=== PATIENT | female | born 1965 | race Caucasian/White ===

== ENCOUNTER → 2018-09-04 08:36 | Outpatient (CLI) | payer OTHER, SELFPAY ==
--- NOTE | 2018-09-04 | DI.MG.S_ITS ---
BILATERAL DIGITAL SCREENING MAMMOGRAM 3D/2D WITH CAD: 09/04/2018 CLINICAL: Routine screening. Family history of breast cancer. Comparison is made to exams dated: 06/28/2017 mammogram, 06/16/2016 mammogram, and 06/04/2014 mammogram - [facility]. The tissue of both breasts is heterogeneously dense. This may lower the sensitivity of mammography. Current study was also evaluated with a Computer Aided Detection (CAD) system. No significant masses, calcifications, or other findings are seen in either breast. There has been no significant interval change. IMPRESSION: NEGATIVE There is no mammographic evidence of malignancy. A 1 year screening mammogram is recommended. This exam was interpreted at Station ID: [id number]. NOTE: For mammograms, a report in lay terms will be sent to the patient. Approximately 15% of breast malignancies will not be visualized mammographically. In the management of a palpable breast mass, a negative mammogram must not discourage biopsy of a clinically suspicious lesion. Electronically Signed By: Rosie ugalde/sharla:09/04/2018 09:44:50 letter sent: Normal Exam ACR BI-RADS Category 1: Negative 3341F
== END ==
PROVIDERS: PCP Family Medicine; Visit Provider Family Medicine
DX: Z12.31 Encounter for screening mammogram for malignant neoplasm of breast (principal); Z80.3 Family history of malignant neoplasm of breast
CPT/HCPCS: 77063; 77067

== ENCOUNTER → 2018-09-04 08:42 | Outpatient (CLI) | payer OTHER, SELFPAY ==
--- NOTE | 2018-09-04 | DI.US.S_ITS ---
PROCEDURE: US PELVIC COMPLETE INDICATIONS: RIGHT PELVIC PAIN TECHNIQUE: Real-time scanning was performed of the pelvic organs, with image documentation. Additional endovaginal scanning was necessary due to incomplete visualization of the adnexal and endometrial structures by transabdominal scanning. COMPARISON: [facility], PELVIC COMPLETE, 08/08/2016, 10:50. [facility], PELVIC COMPLETE, 05/08/2017, 12:20. FINDINGS: Transabdominal scanning: Limited scanning through the kidneys shows no hydronephrosis. No pathologic free abdominal or pelvic fluid. Endovaginal scanning: Uterus: Uterus is normal in size at 5.5 x 5.7 x 4.7 cm. The endometrium measures 4-5 mm in combined thickness. There is a 2.4 cm fibroid seen along the posterior left uterus. Ovaries: Neither ovary can be seen. IMPRESSION: No imaging explanation is found for this patient's presenting history of pelvic pain. 2.4 cm fibroid noted, which is similar to prior study Limited study, without visualization of either ovary. Dictated by: Johnnie Smiley M.D. on 09/04/2018 at 9:34 Approved by: Johnnie Smiley M.D. on 09/04/2018 at 9:36
== END ==
PROVIDERS: PCP Family Medicine; Visit Provider Family Medicine
DX: D25.9 Leiomyoma of uterus, unspecified (principal); R10.2 Pelvic and perineal pain
CPT/HCPCS: 76830; 76856

== ENCOUNTER → 2019-09-24 08:10 | Outpatient (CLI) | payer OTHER, SELFPAY ==
--- NOTE | 2019-09-24 | DI.MG.S_ITS ---
BILATERAL DIGITAL SCREENING MAMMOGRAM 3D/2D WITH CAD: 09/24/2019 CLINICAL: Routine screening. Family history of breast cancer. Comparison is made to exams dated: 09/04/2018 mammogram, 06/28/2017 mammogram, and 06/16/2016 mammogram - [facility]. The tissue of both breasts is heterogeneously dense. This may lower the sensitivity of mammography. Current study was also evaluated with a Computer Aided Detection (CAD) system. No significant masses, calcifications, or other findings are seen in either breast. There has been no significant interval change. IMPRESSION: NEGATIVE There is no mammographic evidence of malignancy. A 1 year screening mammogram is recommended. This exam was interpreted at Station ID: [id number]. NOTE: For mammograms, a report in lay terms will be sent to the patient. Approximately 15% of breast malignancies will not be visualized mammographically. In the management of a palpable breast mass, a negative mammogram must not discourage biopsy of a clinically suspicious lesion. Electronically Signed By: Bridget bowden/sharla:09/24/2019 09:11:44 letter sent: Normal Exam ACR BI-RADS Category 1: Negative 3341F
== END ==
PROVIDERS: PCP Family Medicine; Visit Provider Family Medicine
DX: Z12.31 Encounter for screening mammogram for malignant neoplasm of breast (principal); Z80.3 Family history of malignant neoplasm of breast
CPT/HCPCS: 77063; 77067

== ENCOUNTER → 2020-04-15 10:11 | Outpatient (CLI) | payer OTHER, SELFPAY ==
--- NOTE | 2020-04-15 | DI.RAD.S_ITS ---
PROCEDURE: XR ANKLE LT MIN 3V INDICATIONS: FRACTURE TECHNIQUE: 3 views of the ankle were acquired. COMPARISON: Outside Film, CR, XR ANKLE 1 OR 2 VIEWS LEFT, 03/19/2020, 17:15. FINDINGS: Bones: Cortical avulsion fracture involving the tip of the lateral malleolus. Anatomic alignment at the tibiotalar joint. Overlying soft tissue swelling has improved since 03/19/20. IMPRESSION: Unchanged alignment of a cortical avulsion fracture of the tip of the lateral malleolus. Interval improved soft tissue swelling. Approved by: Jason Wolf M.D. on 04/15/2020 at 11:20
== END ==
PROVIDERS: PCP Family Medicine; Referring Provider Podiatrist; Visit Provider Podiatrist
DX: M84.372D Stress fracture, left ankle, subsequent encounter for fracture with routine healing (principal)
CPT/HCPCS: 73610

== ENCOUNTER → 2020-11-22 16:15 | Outpatient (CLI) | payer OTHER, SELFPAY ==
--- NOTE | 2020-11-22 16:17 | DI.MG.S_ITS ---
BILATERAL DIGITAL SCREENING MAMMOGRAM 3D/2D WITH CAD: 11/22/2020 CLINICAL: Routine screening. Family history of breast cancer. Comparison is made to exams dated: 09/24/2019 mammogram, 09/04/2018 mammogram, and 06/28/2017 mammogram - [facility]. There are scattered fibroglandular elements in both breasts. Current study was also evaluated with a Computer Aided Detection (CAD) system. No significant masses, calcifications, or other findings are seen in either breast. There has been no significant interval change. IMPRESSION: NEGATIVE There is no mammographic evidence of malignancy. A 1 year screening mammogram is recommended. This exam was interpreted at Station ID: [id number]. NOTE: For mammograms, a report in lay terms will be sent to the patient. Approximately 15% of breast malignancies will not be visualized mammographically. In the management of a palpable breast mass, a negative mammogram must not discourage biopsy of a clinically suspicious lesion. Electronically Signed By: Jeff burkett/sharla:11/22/2020 16:43:55 letter sent: Normal Exam ACR BI-RADS Category 1: Negative 3341F
== END ==
PROVIDERS: PCP Family Medicine; Referring Provider Family Medicine; Visit Provider Family Medicine
DX: Z12.31 Encounter for screening mammogram for malignant neoplasm of breast (principal); Z80.3 Family history of malignant neoplasm of breast
CPT/HCPCS: 77063; 77067

== ENCOUNTER → 2021-08-03 10:36 | Outpatient (CLI) | payer OTHER, SELFPAY ==
--- NOTE | 2021-08-03 | DI.US.S_ITS ---
PROCEDURE: US PELVIC COMPLETE INDICATIONS: RIGHT PELVIC PAIN TECHNIQUE: Real-time scanning was performed of the pelvic organs, with image documentation. Additional endovaginal scanning was necessary due to incomplete visualization of the adnexal and endometrial structures by transabdominal scanning. COMPARISON: [facility], , US PELVIC COMPLETE, 09/04/2018, 9:29. FINDINGS: Uterus: Uterus is retroverted and normal in size at 5.6 x 3.9 x 3.8 cm. The myometrium is homogeneous. The endometrium measures 2.0 mm combined thickness. 1.9 cm posterior subserosal fibroid which appears similar prior examination. Ovaries: Right ovary measures 2.8 x 0.8 x 0.9 cm and the left ovary is not visualized. No adnexal masses seen. There is prominent adnexal vascularity bilaterally. Other: No pathologic free abdominal or pelvic fluid. IMPRESSION: 1. The right ovary appears normal and the left ovary is not visualized. 2. No change in posterior subserosal fibroid measuring up to 19 mm. 3. Prominent adnexal vascularity which can be associated with pelvic congestion syndrome. We strive to produce accurate, complete, and clear reports of imaging services. To assist us in improving patient care, this report was composed using standard report templates and voice recognition software. Therefore, it may contain abnormal punctuation, insertions and/or omissions. Occasional wrong-word or sound-alike substitutions may occur. Though we review the report and make efforts to correct it, we do recommend that the report be read carefully in proper context to recognize any text inaccuracies. Dictated by: Floyd FENG Interpreted: Garland Perez MD on 08/03/2021 at 11:44 Transcribed by: DENIS on 08/03/2021 at 11:47 Approved by: Garland Perez M.D. on 08/03/2021 at 13:49
== END ==
PROVIDERS: PCP Family Medicine; Referring Provider Family Medicine; Visit Provider Family Medicine
DX: D25.2 Subserosal leiomyoma of uterus (principal); R10.2 Pelvic and perineal pain
CPT/HCPCS: 76830; 76856

== ENCOUNTER → 2022-05-10 08:11 | Outpatient (CLI) | payer OTHER, SELFPAY ==
--- NOTE | 2022-05-10 08:13 | DI.MG.S_ITS ---
BILATERAL DIGITAL SCREENING MAMMOGRAM 3D/2D WITH CAD: 05/10/2022 CLINICAL: Routine screening. Family history of breast cancer. Comparison is made to exams dated: 11/22/2020 mammogram, 09/24/2019 mammogram, and 09/04/2018 mammogram - [facility]. There are scattered areas of fibroglandular density in both breasts (category b / 25%-50% glandular tissue). Current study was also evaluated with a Computer Aided Detection (CAD) system. No significant masses, calcifications, or other findings are seen in either breast. There has been no significant interval change. IMPRESSION: NEGATIVE There is no mammographic evidence of malignancy. A 1 year screening mammogram is recommended. Based on the Tyrer Cuzick model (a risk assessment model) the patient's lifetime risk is 11.4% and her 10 year risk is 3.5%. According to the ACR, ACS, and NCCN guidelines, an annual breast MRI exam along with mammogram is recommended if the patient's lifetime risk is 20% or greater. This exam was interpreted at Station ID: [id number]. NOTE: For mammograms, a report in lay terms will be sent to the patient. Approximately 15% of breast malignancies will not be visualized mammographically. In the management of a palpable breast mass, a negative mammogram must not discourage biopsy of a clinically suspicious lesion. Electronically Signed By: Bridget bowden/sharla:05/10/2022 12:43:04 letter sent: Normal Exam ACR BI-RADS Category 1: Negative 3341F
== END ==
PROVIDERS: PCP Family Medicine; Referring Provider Family Medicine; Visit Provider Family Medicine
DX: Z12.31 Encounter for screening mammogram for malignant neoplasm of breast (principal); Z80.3 Family history of malignant neoplasm of breast
CPT/HCPCS: 77063; 77067

== ENCOUNTER → 2023-08-31 15:27 | Outpatient (CLI) | payer OTHER, SELFPAY ==
--- NOTE | 2023-08-31 15:29 | DI.MG.S_ITS ---
BILATERAL DIGITAL SCREENING MAMMOGRAM 3D/2D WITH CAD: 08/31/2023 CLINICAL: Routine screening. Family history of breast cancer. Comparison is made to exams dated: 05/10/2022 mammogram, 11/22/2020 mammogram, and 09/24/2019 mammogram - [facility]. There are scattered areas of fibroglandular density in both breasts (category b / 25%-50% glandular tissue). Current study was also evaluated with a Computer Aided Detection (CAD) system. No significant masses, calcifications, or other findings are seen in either breast. There has been no significant interval change. IMPRESSION: NEGATIVE There is no mammographic evidence of malignancy. A 1 year screening mammogram is recommended. Based on the Tyrer Cuzick model (a risk assessment model) the patient's lifetime risk is 11.3% and her 10 year risk is 3.7%. According to the ACR, ACS, and NCCN guidelines, an annual breast MRI exam along with mammogram is recommended if the patient's lifetime risk is 20% or greater. This exam was interpreted at Station ID: [id number]. NOTE: For mammograms, a report in lay terms will be sent to the patient. Approximately 15% of breast malignancies will not be visualized mammographically. In the management of a palpable breast mass, a negative mammogram must not discourage biopsy of a clinically suspicious lesion. Electronically Signed By: Silvino oliveira/sharla:08/31/2023 16:36:15 letter sent: Normal Exam ACR BI-RADS Category 1: Negative 3341F
== END ==
PROVIDERS: PCP Family Medicine; Referring Provider Family Medicine; Visit Provider Family Medicine
DX: Z12.31 Encounter for screening mammogram for malignant neoplasm of breast (principal); Z80.3 Family history of malignant neoplasm of breast
CPT/HCPCS: 77063; 77067

== ENCOUNTER → 2024-01-10 07:17 | Outpatient (CLI) | payer OTHER, SELFPAY ==
--- NOTE | 2024-01-10 07:18 | DI.US.S_ITS ---
PROCEDURE: US PELVIC COMPLETE INDICATIONS: RLQ PAIN/PELVIC PAIN/HX PELVIC CONGESTION TECHNIQUE: Real-time scanning was performed of the pelvic organs, with image documentation. Additional endovaginal scanning was necessary due to incomplete visualization of the adnexal and endometrial structures by transabdominal scanning. COMPARISON: US, US PELVIC COMPLETE, 09/04/2018, 9:29. [facility], US, US PELVIC COMPLETE, 08/03/2021, 10:43. FINDINGS: Uterus: Uterus is retroverted and normal in size at 5.1 x 2.7 x 3.5 cm. The myometrium is heterogeneous. The endometrium is indistinct measuring 4 mm combined thickness. There is a 1.9 x 1.4 x 2.5 cm subserosal fibroid in the anterior uterine wall at midline. Ovaries: Ovaries are visualized. Other: No pathologic free abdominal or pelvic fluid. IMPRESSION: 1. Uterus is is normal in size. Mild medium is heterogeneous. Endometrium it is indistinct with irregular junctional zone. The findings may be related to adenomyosis. There is trace endometrial fluid. Consider gynecological MRI if clinical symptoms persist. 2. Ovaries are not visualized. 3. Enlarged vessels are again noted in pelvis, suggest pelvic congestion syndrome. We strive to produce accurate, complete, and clear reports of imaging services. To assist us in improving patient care, this report was composed using standard report templates and voice recognition software. Therefore, it may contain abnormal punctuation, insertions and/or omissions. Occasional wrong-word or sound-alike substitutions may occur. Though we review the report and make efforts to correct it, we do recommend that the report be read carefully in proper context to recognize any text inaccuracies. Dictated by: Doron Womack M.D. on 01/10/2024 at 10:07 Approved by: Doron Womack M.D. on 01/10/2024 at 10:18
== END ==
LOC: US 07:17
PROVIDERS: PCP Family Medicine; Referring Provider Family Medicine; Visit Provider Family Medicine
DX: D25.2 Subserosal leiomyoma of uterus (principal); R10.2 Pelvic and perineal pain; R10.31 Right lower quadrant pain
CPT/HCPCS: 76856

== ENCOUNTER → 2024-02-08 11:08 | Outpatient (CLI) | payer OTHER, SELFPAY ==
--- NOTE | 2024-02-08 11:09 | DI.MRI.S_ITS ---
PROCEDURE: MR PELVIS WO/W CON INDICATIONS: Pelvic and perineal pain TECHNIQUE: Coronal HASTE, sagittal breath-hold T2 FSE; axial T1 FSE with and without fat saturation through the pelvis. Optional long- and short-axis uterine nonbreath-hold T2 FSE through the uterus. Sagittal or axial dynamic VIBE during administration of contrast. Post-contrast axial or coronal VIBE/2-D FLASH with fat saturation from the iliac crests to the symphysis. Optional diffusion weighted imaging and ADC may be performed. COMPARISON: None. FINDINGS: Image quality: Excellent. Uterus: Retroverted uterus, normal size for patient's age. There is a subserosal left fundal fibroid measuring 1.8 x 2.3 cm. The myometrium is otherwise fairly homogeneous. The junctional zone architecture is no longer visible, presumed due to age-related changes. The endometrium is thin. No endometrial masses. The cervix has a normal appearance. Adnexa: Ovaries are not well seen, likely atrophic. Diffuse adnexal varicosities, uterine and adnexal hypervascularity, and early appearance of gonadal veins bilaterally. Left gonadal veins are dilated. Urinary system: Bladder wall is normal in thickness. Distal ureters are non distended. Urethra appears normal in morphology. Nodes and vessels: No pelvic or inguinal adenopathy by size criteria. Iliac vessels are normal in size. Bowel and peritoneum: No pathologic free pelvic fluid. Inferior colon and small bowel loops are normal in caliber. Soft tissues: No inguinal hernias. No findings of pelvic floor incompetence in the absence of provocation. No suspicious soft tissue mass Bones: Marrow demonstrates normal overall signal. IMPRESSION: Findings consistent with pelvic congestion syndrome. Retroverted uterus with a single subserosal fibroid. No MR evidence of adenomyosis. Ovaries are not well seen. Dictated by: Bridget Park M.D. on 02/08/2024 at 15:31 Approved by: Bridget Park M.D. on 02/08/2024 at 15:55
== END ==
LOC: MRI 11:08
PROVIDERS: PCP Family Medicine; Referring Provider Family Medicine; Visit Provider Family Medicine
DX: D25.2 Subserosal leiomyoma of uterus (principal); R10.2 Pelvic and perineal pain
CPT/HCPCS: 72197; A9579